=== PATIENT | female | born 1970 | race Hispanic/Latino ===

== ENCOUNTER 2018-08-28 21:52 | Emergency (ER) | payer MEDICARE ==
[~2018-08-28] VITALS: Ht 157.5 cm; Wt 118.8 kg
--- OUTSIDE RECORDS SUMMARY | 2018-08-28 21:54 | XMS REPORT | Summary of Care ---
Author Author [facility] Organization [facility] Address Unknown Phone Unavailable Encounter HQ Dean_kari(FIN) [id number] Date(s): 06/16/17 - 06/16/17 [facility] [place] [address] [phone] Discharge Disposition: Home or Self Care Attending Physician: Marychuy Fountain MD Vital Signs No data available for this section Problem List Condition Effective Dates Status Health Status Informant Spinal stenosis of 04/11/14 Active lumbar region(Confirmed)1 1Data migrated from [employer] on 06/24/15. Originally documented as Lumbar spinal stenosis. Allergies, Adverse Reactions, Alerts Substance Reaction Severity Status [email or web address] Active 1Data migrated from [employer] on 06/22/16. Originally documented as Copaxone. Medications No data available for this section Results No data available for this section Immunizations No data available for this section Procedures No data available for this section Social History No data available for this section Assessment and Plan No data available for this section
--- OUTSIDE RECORDS SUMMARY | 2018-08-28 21:54 | XMS REPORT | Summary of Care ---
Author Author [facility] Address Unknown Phone Unavailable Encounter HQ Encntr_kari(FIN) [id number] Date(s): 07/16/17 - 08/14/17 [facility] [address] [place], [place] [address] Encounter Diagnosis Multiple sclerosis (Final) - 10/22/17 Discharge Disposition: Home or Self Care Attending Physician: Anuel Gregg MD Vital Signs No data available for this section Problem List Condition Effective Dates Status Health Status Informant Spinal stenosis of 04/11/14 Active lumbar region(Confirmed)1 1Data migrated from [employer] on 06/24/15. Originally documented as Lumbar spinal stenosis. Allergies, Adverse Reactions, Alerts Substance Reaction Severity Status [email or web address] Active 1Data migrated from [employer] on 06/22/16. Originally documented as Copaxone. Medications No data available for this section Results No data available for this section Immunizations No data available for this section Procedures No data available for this section Social History Social History Type Response Smoking Status Unknown if ever smoked; Previous treatment: None; Exposure to Tobacco Smoke None; Cigarette Smoking Last 365 Days Unable to obtain; Reg Smoking Cessation Counseling No entered on: 07/06/17 Assessment and Plan No data available for this section
--- OUTSIDE RECORDS SUMMARY | 2018-08-28 21:54 | XMS REPORT | Summary of Care ---
Author Author [facility] Address Unknown Phone Unavailable Encounter HQ Madiha(SCOTT) [id number] Date(s): 06/02/17 - 07/01/17 [facility] [address] [place], [place] [address] Discharge Disposition: Home or Self Care Attending Physician: Anuel Gregg MD Vital Signs No data available for this section Problem List Condition Effective Dates Status Health Status Informant Spinal stenosis of 04/11/14 Active lumbar region(Confirmed)1 1Data migrated from [employer] on 06/24/15. Originally documented as Lumbar spinal stenosis. Allergies, Adverse Reactions, Alerts Substance Reaction Severity Status [email or web address] Active 1Data migrated from [employer] on 06/22/16. Originally documented as Copaxone. Medications [...]
--- OUTSIDE RECORDS SUMMARY | 2018-08-28 21:54 | XMS REPORT | Summary of Care ---
Author Author [facility] Address Unknown Phone Unavailable Encounter HQ Dean_kari(SCOTT) [id number] Date(s): 07/14/18 - 08/14/18 [facility] [address] [place], [place] [address] Discharge Disposition: Home or Self Care Attending Physician: Elvia Martinez MD Referring Physician: Elvia Martinez MD Vital Signs Most recent to 1 oldest [Reference Range]: Blood Pressure 104/53 mmHg [90-140/60-90 mmHg] (07/14/18 10:04 AM) Peripheral Pulse 76 bpm Rate [60-100 bpm] (07/14/18 10:04 AM) Problem List Condition Effective Dates Status Health Status Informant Multiple sclerosis, Active primary progressive(Confirme d) Spinal stenosis of 04/11/14 Active lumbar region(Confirmed)1 1Data migrated from [employer] on 06/24/15. Originally documented as Lumbar spinal stenosis. Allergies, Adverse Reactions, Alerts Substance Reaction Severity Status [email or web address] Active 1Data migrated from [employer] on 06/22/16. Originally documented as Copaxone. Medications [...]
--- OUTSIDE RECORDS SUMMARY | 2018-08-28 21:54 | XMS REPORT | Summary of Care ---
Author Author [facility] Address Unknown Phone Unavailable Encounter HQ Madiha(SCOTT) [id number] Date(s): 04/20/17 - 05/19/17 [facility] [address] [place], [place] [address] Discharge Disposition: Home or Self Care Attending Physician: Anuel Gregg MD Referring Physician: Anuel Gregg MD Vital Signs Most recent to 1 2 oldest [Reference Range]: Height 157.48 cm (04/20/17 9:18 AM) Blood Pressure 107/58 mmHg 135/69 mmHg [90-140/60-90 mmHg] (04/22/17 11:18 AM) (04/20/17 9:18 AM) Peripheral Pulse 78 bpm 73 bpm Rate [60-100 bpm] (04/22/17 11:18 AM) (04/20/17 9:18 AM) Weight 152.273 kg (04/20/17 9:18 AM) Body Mass Index 61.4 m2 (04/20/17 9:18 AM) Problem List Condition Effective Dates Status Health Status Informant Spinal stenosis of 04/11/14 Active lumbar region(Confirmed)1 1Data migrated from [employer] on 06/24/15. Originally documented as Lumbar spinal stenosis. Allergies, Adverse Reactions, Alerts Substance Reaction Severity Status [email or web address] Active 1Data migrated from [employer] on 06/22/16. Originally documented as Copaxone. Medications No data available for this section Results No data available for this section Immunizations No data available for this section Procedures No data available for this section Social History No data available for this section Assessment and Plan No data available for this section
--- OUTSIDE RECORDS SUMMARY | 2018-08-28 21:54 | XMS REPORT | Clinical Summary ---
Author Author [facility] Address Unknown Phone Unavailable Care Team Providers Care Artificial Teeth Inspector Name Role Phone PCP Unavailable Allergies Not on File Medications Not on file Active Problems Not on file Encounters Care Team Description Date Type Specialty Michael Saunders MD ANDRÉS (obstructive sleep apnea); Multiple sclerosis (HCC); Morbid obesity (HCC); Body mass index 50.0-59.9, adult (HCC) 02/05/2018 Hospital Encounter Angi Luna RRT, RCP 02/01/2018 Outside Orders Angi Luna RRT, RCP ANDRÉS (obstructive sleep apnea) (Primary Dx); Multiple sclerosis (HCC); Morbid obesity (HCC); Body mass index 50.0-59.9, adult (HCC) 02/01/2018 Outside Orders Angi Luna RRT, RCP ANDRÉS (obstructive sleep apnea) (Primary Dx); Multiple sclerosis (HCC); Morbid obesity (HCC); Body mass index 50.0-59.9, adult ([facility]) 02/01/2018 Outside Orders Pao King, SENIOR QUALITY ASSURANCE ANALYST, RPSGT 11/12/2017 Outside Orders Michael Saunders MD Obstructive sleep apnea (adult) (pediatric); Morbid obesity with body mass index of 50.0-59.9 in adult (HCC); Morbid obesity with BMI of 50.0-59.9, adult (HCC) 10/16/2017 Hospital Encounter Angi Luna RRT, RCP Obstructive sleep apnea (adult) (pediatric) (Primary Dx); Morbid obesity with body mass index of 50.0-59.9 in adult (HCC); Morbid obesity with BMI of 50.0-59.9, adult ([facility]) 10/01/2017 Orders Only after 2017 Social History Date Tobacco Use Types Packs/Day Years Used Never Assessed Sex Assigned at Date Recorded Not on file Industry Job Start Date Occupation Not on file Not on file Not on file Travel End Travel History Travel Start No recent travel history available. Last Filed Vital Signs Not on file Plan of Treatment Health Maintenance Due Date Last Done Comments INFLUENZA VACCINE 03/07/2018 Procedures Comments Procedure Name Priority Date/Time Associated Diagnosis POLYSOMNOGRAPHY REPORT - 03/01/2018 SCAN 1:41 PM CDT POLYSOMNOGRAPHY REPORT - 02/11/2018 SCAN 6:10 AM CDT POLYSOMNOGRAPHY REPORT - 11/19/2017 SCAN 2:45 PM CDT POLYSOMNOGRAPHY REPORT - 10/20/2017 SCAN 11:11 AM CDT after 2017 Results * POLYSOMNOGRAPHY REPORT - SCAN (03/01/2018 1:41 PM CDT) Narrative Performed At * POLYSOMNOGRAPHY REPORT - SCAN (02/11/2018 6:10 AM CDT) Narrative Performed At * POLYSOMNOGRAPHY REPORT - SCAN (11/19/2017 2:45 PM CDT) Narrative Performed At * POLYSOMNOGRAPHY REPORT - SCAN (10/20/2017 11:11 AM CDT) Narrative Performed At after 2017 Insurance Payer Benefit Subscriber ID Type Phone Address Plan / Group MEDICARE MEDICARE A xxxxxxxxxx Medicare B MEDICAID MEDICAID xxxxxxxxx Medicaid OF [place]
--- OUTSIDE RECORDS SUMMARY | 2018-08-28 21:54 | XMS REPORT | Summary of Care ---
Author Author [facility] Address Unknown Phone Unavailable Encounter HQ Irmantr_kari(SCOTT) [id number] Date(s): 03/01/17 - 03/30/17 [address] [place], [place] [address] Discharge Disposition: Home or Self Care Attending Physician: Anuel Gregg MD Vital Signs No data available for this section Problem List Condition Effective Dates Status Health Status Informant Spinal stenosis of 04/11/14 Active lumbar region(Confirmed)1 1Data migrated from [employer] on 06/24/15. Originally documented as Lumbar spinal stenosis. Allergies, Adverse Reactions, Alerts Substance Reaction Severity Status [email or web address] Active 1Data migrated from [employer] on 06/22/16. Originally documented as Copaxone. Medications No data available for this section Results No data available for this section Immunizations No data available for this section Procedures No data available for this section Social History No data available for this section Assessment and Plan No data available for this section
--- OUTSIDE RECORDS SUMMARY | 2018-08-28 21:54 | XMS REPORT | Summary of Care ---
Author Author [facility] Address Unknown Phone Unavailable Encounter HQ Dean_kari(SCOTT) [id number] Date(s): 05/03/17 - 06/01/17 [facility] [address] [place], [place] [address] Discharge Disposition: Home or Self Care Attending Physician: Anuel Gregg MD Vital Signs Most recent to 1 oldest [Reference Range]: Blood Pressure 101/50 mmHg [90-140/60-90 mmHg] (06/01/17 2:27 PM) Problem List Condition Effective Dates Status Health Status Informant Spinal stenosis of 04/11/14 Active lumbar region(Confirmed)1 1Data migrated from [employer] on 06/24/15. Originally documented as Lumbar spinal stenosis. Allergies, Adverse Reactions, Alerts Substance Reaction Severity Status [email or web address] Active 1Data migrated from [employer] on 06/22/16. Originally documented as Copaxone. Medications No data available for this section Results No data available for this section Immunizations No data available for this section Procedures No data available for this section Social History No data available for this section Assessment and Plan No data available for this section
--- OUTSIDE RECORDS SUMMARY | 2018-08-28 21:54 | XMS REPORT | Summary of Care ---
Author Author [facility] Address Unknown Phone Unavailable Encounter GREG Cleary(FIN) [id number] Date(s): 12/28/17 - 01/26/18 [facility] [address] [place], [place] [address] [phone] Encounter Diagnosis Multiple sclerosis (Final) - 02/18/18 Other abnormalities of gait and mobility (Final) - Weakness (Final) - Cramp and spasm (Final) - Discharge Disposition: Home or Self Care Attending Physician: Elvia Martinez MD Vital Signs Most recent to 1 2 oldest [Reference Range]: Blood Pressure 103/61 mmHg 121/57 mmHg [90-140/60-90 mmHg] (01/20/18 12:44 PM) (01/13/18 1:34 PM) Peripheral Pulse 89 bpm 81 bpm Rate [60-100 bpm] (01/20/18 12:44 PM) (01/13/18 1:34 PM) Problem List Condition Effective Dates Status Health Status Informant Multiple sclerosis, Active primary progressive(Confirme d) Spinal stenosis of 04/11/14 Active lumbar region(Confirmed)1 1Data migrated from [employer] on 06/24/15. Originally documented as Lumbar spinal stenosis. Allergies, Adverse Reactions, Alerts Substance Reaction Severity Status [email or web address] Active 1Data migrated from [employer] on 06/22/16. Originally documented as Copaxone. Medications [...]
--- OUTSIDE RECORDS SUMMARY | 2018-08-28 21:54 | XMS REPORT | Summary of Care ---
Author Author [facility] Address Unknown Phone Unavailable Encounter HQ Dean_kari(SCOTT) [id number] Date(s): 11/26/17 - 12/25/17 [address] [place], [place] [address] Discharge Disposition: Home or Self Care Attending Physician: Elvia Martinez MD Referring Physician: Elvia Martinez MD Vital Signs Most recent to 1 oldest [Reference Range]: Blood Pressure 96/56 mmHg [90-140/60-90 mmHg] (11/26/17 11:01 AM) Peripheral Pulse 85 bpm Rate [60-100 bpm] (11/26/17 11:01 AM) Problem List Condition Effective Dates Status Health Status Informant Spinal stenosis of 04/11/14 Active lumbar region(Confirmed)1 1Data migrated from [employer] on 06/24/15. Originally documented as Lumbar spinal stenosis. Allergies, Adverse Reactions, Alerts Substance Reaction Severity Status [email or web address] Active 1Data migrated from [employer] on 06/22/16. Originally documented as Copaxone. Medications [...]
--- OUTSIDE RECORDS SUMMARY | 2018-08-28 21:54 | XMS REPORT | Summary of Care ---
Author Author [facility] Address Unknown Phone Unavailable Encounter HQ Dean_kari(FIN) [id number] Date(s): 07/07/17 - 07/07/17 [address] [place], [place] [address] Attending Physician: Anuel Gregg MD Vital Signs No data available for this section Problem List Condition Effective Dates Status Health Status Informant Spinal stenosis of 04/11/14 Active lumbar region(Confirmed)1 1Data migrated from [employer] on 06/24/15. Originally documented as Lumbar spinal stenosis. Allergies, Adverse Reactions, Alerts Substance Reaction Severity Status [email or web address] Active 1Data migrated from [employer] on 06/22/16. Originally documented as Copaxone. Medications [...]
--- OUTSIDE RECORDS SUMMARY | 2018-08-28 21:54 | XMS REPORT | Summary of Care ---
Author Author [facility] Address Unknown Phone Unavailable Encounter GREG Cleary(SCOTT) [id number] Date(s): 11/19/17 - 12/18/17 [address] [place], [place] [address] [phone] Discharge Disposition: Home or Self Care Attending Physician: Physician, Non Associated MD Referring Physician: PCP, None MD Vital Signs Most recent to 1 2 oldest [Reference Range]: Height 157.48 cm (11/19/17 1:08 PM) Blood Pressure 100/59 mmHg 94/55 mmHg [90-140/60-90 mmHg] (11/24/17 10:32 AM) (11/19/17 1:08 PM) Peripheral Pulse 81 bpm 81 bpm Rate [60-100 bpm] (11/24/17 10:32 AM) (11/19/17 1:08 PM) Weight 139.148 kg (11/19/17 1:08 PM) Body Mass Index 56.11 m2 (11/19/17 1:08 PM) Problem List Condition Effective Dates Status Health Status Informant Spinal stenosis of 04/11/14 Active lumbar region(Confirmed)1 1Data migrated from [employer] on 06/24/15. Originally documented as Lumbar spinal stenosis. Allergies, Adverse Reactions, Alerts Substance Reaction Severity Status [email or web address] Active 1Data migrated from [employer] on 06/22/16. Originally documented as Copaxone. Medications [...]
--- OUTSIDE RECORDS SUMMARY | 2018-08-28 21:54 | XMS REPORT | Continuity of Care Document ---
Author Author [facility] Address Unknown Phone Unavailable Problems Problem Status Onset Date Classification Date Reported Comments Source FITTING Active 07/07/2018 [facility] MUTIPLE SCLEROSIS Active 03/01/2018 [facility] Multiple sclerosis 02/18/2018 08/15/2018 [facility] EVAL Active 11/17/2017 [facility] Gastro-esophageal reflux disease without esophagitis 06/22/2017 09/22/2017 [facility] [place] MULTIPLE SCLEROSIS Active 04/23/2017 [facility] V76.12 - SCREEN MAMMOGRA Active 08/20/2014 [facility] Spinal stenosis of lumbar region<sup>1</sup> Active 04/11/2014 Problem 08/16/2018 Data migrated from Toothpick on 06/24/15. Originally documented as Lumbar spinal stenosis. [facility] [place] M/S Active 06/07/2000 [facility] Dyskinesia of esophagus 09/22/2017 [facility] [place] Epigastric pain 09/22/2017 [facility] [place] Hypothyroidism, unspecified 09/22/2017 [facility] [place] Mixed hyperlipidemia 09/22/2017 [facility] [place] Other abnormalities of gait and mobility 08/15/2018 [facility] Weakness 08/15/2018 [facility] Cramp and spasm 08/15/2018 [facility] Multiple sclerosis, primary progressive Active Problem 08/16/2018 [facility] PARAPLEGIA, UNSPECIFIED Active [facility] MULTIPLE SCLEROSIS Active [facility] Medications Medication Details Route Status Patient Instructions Ordering Provider Order Date Source Allergies, Adverse Reactions, Alerts Substance Category Reaction Severity Reaction type Status Date Reported Comments Source glatiramer<sup>1</sup> Assertion Drug allergy Active 01/10/2013 Data migrated from Toothpick on 06/22/16. Originally documented as Copaxone. [facility] Immunizations Immunization Date Given Site Status Last Updated Comments Source Results Order Name Results Value Reference Range Date Interpretation Comments Source Upper GI w Barium swallow DX Upper GI w Barium swallow DX Exam: Barium swallow esophagram and upper gastrointestinal swallow exam Reason for Exam: - dyspepsia Comparison Exam: None Discussion: Note that this is a limited exam secondary to lack of patient mobility. Business Services Assistant view of the cervical spine and soft tissues of the neck are unremarkable. Patient ingested air crystals and barium without incident. Upon deglutition, there was no evidence seen for aspiration or penetration. The valleculae and piriform sinuses are unremarkable. The esophagus is unremarkable in appearance, without evidence for mucosal abnormalities, abnormal filling defects, or external mass effect. No hiatal hernia was identified. However, a moderate amount of tertiary contraction waves are seen of the esophagus. During the examination, there was no evidence seen for gastroesophageal reflux. The stomach and duodenum are unremarkable. Fluoro time 2 minutes, 34 seconds. Total exam YWK=4002 mGy-cm. Impression: 1. Moderate tertiary contraction waves involving the esophagus. No evidence seen for gastroesophageal reflux. 06/16/2017 - - Read by: Maicol Beckman MD Dictated Date/time: 06/16/17 13:45 Electronically Signed by: Maicol Beckman MD 06/16/17 13:49 FINAL REPORT DANTE Martines Foot series DX Foot series DX Exam: Left ankle and left foot x-rays, 3 views each Reason for Exam: sprain Comparison Exam: Left ankle x-ray 05/21/2011 Discussion: No acute bony abnormalities. Joint spaces are preserved. No suspicious osteoblastic or osteolytic lesions. Impression: 1. No acute bony abnormalities identified. 09/21/2016 - - Read by: Maicol Beckman MD Dictated Date/time: 09/21/16 15:42 Electronically Signed by: Maicol Beckman MD 09/21/16 15:44 FINAL REPORT DANTE Martines Ankle 3 views DX Ankle 3 views DX Exam: Left ankle and left foot x-rays, 3 views each Reason for Exam: sprain Comparison Exam: Left ankle x-ray 05/21/2011 Discussion: No acute bony abnormalities. Joint spaces are preserved. No suspicious osteoblastic or osteolytic lesions. Impression: 1. No acute bony abnormalities identified. 09/21/2016 - - Read by: Maicol Beckman MD Dictated Date/time: 09/21/16 15:42 Electronically Signed by: Maicol Beckman MD 09/21/16 15:44 FINAL REPORT DANTE Martines Vital Signs Vital Sign Value Date Comments Source Systolic (mm Hg) 104 07/14/2018 [facility] Diastolic (mm Hg) 53 07/14/2018 [facility] Heart Rate 76 07/14/2018 [facility] Heart Rate 89 01/20/2018 [facility] Systolic (mm Hg) 103 01/20/2018 [facility] Diastolic (mm Hg) 61 01/20/2018 [facility] Systolic (mm Hg) 121 01/13/2018 [facility] Diastolic (mm Hg) 57 01/13/2018 [facility] Heart Rate 81 01/13/2018 [facility] Systolic (mm Hg) 96 11/26/2017 [facility] Diastolic (mm Hg) 56 11/26/2017 [facility] Heart Rate 85 11/26/2017 [facility] Systolic (mm Hg) 100 11/24/2017 [facility] Diastolic (mm Hg) 59 11/24/2017 [facility] Heart Rate 81 11/24/2017 [facility] Height 157.48 cm 11/19/2017 [facility] Weight 139.148 11/19/2017 [facility] BMI Calculated 56.11 11/19/2017 [facility] Heart Rate 81 11/19/2017 [facility] Systolic (mm Hg) 94 11/19/2017 [facility] Diastolic (mm Hg) 55 11/19/2017 [facility] Systolic (mm Hg) 101 06/01/2017 [facility] Diastolic (mm Hg) 50 06/01/2017 [facility] Heart Rate 78 04/22/2017 [facility] Systolic (mm Hg) 107 04/22/2017 [facility] Diastolic (mm Hg) 58 04/22/2017 [facility] Height 157.48 cm 04/20/2017 [facility] Systolic (mm Hg) 135 04/20/2017 [facility] Diastolic (mm Hg) 69 04/20/2017 [facility] Heart Rate 73 04/20/2017 [facility] Weight 152.273 04/20/2017 [facility] BMI Calculated 61.4 04/20/2017 [facility] Systolic (mm Hg) 102 01/29/2017 [facility] Diastolic (mm Hg) 61 01/29/2017 [facility] Heart Rate 75 01/29/2017 [facility] Encounters Location Location Details Encounter Type Encounter Number Reason For Visit Attending Provider ADM Date DC Date Status Source [facility] [place] [facility] [id number] Marychuy Александр 09/11/2014 09/12/2014 [facility] [place] [facility] [place] [facility] [id number] Marychuy Александр 09/21/2016 09/22/2016 [facility] [place] [facility] [id number] Anuel Gregg 01/29/2017 02/28/2017 [facility] [id number] Anuel Gregg 03/01/2017 03/31/2017 [facility] [id number] Anuel Gregg 03/31/2017 04/30/2017 [facility] [id number] Anuel Gregg 04/20/2017 05/20/2017 [facility] [id number] Anuel Gregg 05/03/2017 06/02/2017 [facility] [id number] Anuel Gregg 06/02/2017 07/02/2017 [facility] [place] Out[facility] Di[facility] [id number] Marychuy Fountain 06/16/2017 06/17/2017 [facility] [place] [facility] [id number] Anuel Gregg 07/07/2017 07/07/2017 [facility] [id number] Anuel Gregg 07/16/2017 08/15/2017 [facility] [id number] Non Physician 11/19/2017 12/19/2017 [facility] [id number] Elvia Juan 11/26/2017 12/26/2017 [facility] [id number] Elvia Juan 12/28/2017 01/27/2018 [facility] [id number] Elvia Juan 07/14/2018 08/15/2018 [facility] Procedures Procedure Code Date Perfomer Comments Source
--- OUTSIDE RECORDS SUMMARY | 2018-08-28 21:54 | XMS REPORT | Summary of Care ---
Author Author [facility] Address Unknown Phone Unavailable Encounter HQ Dean_kari(SCOTT) [id number] Date(s): 01/29/17 - 02/27/17 [facility] [address] [place], [place] [address] Discharge Disposition: Home or Self Care Attending Physician: Anuel Gregg MD Vital Signs Most recent to 1 oldest [Reference Range]: Blood Pressure 102/61 mmHg [90-140/60-90 mmHg] (01/29/17 8:13 AM) Peripheral Pulse 75 bpm Rate [60-100 bpm] (01/29/17 8:13 AM) Problem List Condition Effective Dates Status Health Status Informant Spinal stenosis of 04/11/14 Active lumbar region(Confirmed)1 1Data migrated from [employer] on 06/24/15. Originally documented as Lumbar spinal stenosis. Allergies, Adverse Reactions, Alerts Substance Reaction Severity Status [email or web address] Active 1Data migrated from [employer] on 06/22/16. Originally documented as Copaxone. Medications No data available for this section Results No data available for this section Immunizations No data available for this section Procedures No data available for this section Social History No data available for this section Assessment and Plan No data available for this section
--- OUTSIDE RECORDS SUMMARY | 2018-08-28 21:54 | XMS REPORT | Summary of Care ---
Author Author [facility] Address Unknown Phone Unavailable Encounter HQ Dean_kari(SCOTT) [phone] Date(s): 03/31/17 - 04/29/17 [facility] [address] [place], [place] [address] [phone] Discharge Disposition: Home or Self Care Attending Physician: Anuel Gregg MD Vital Signs No data available for this section Problem List Condition Effective Dates Status Health Status Informant Spinal stenosis of 04/11/14 Active lumbar region(Confirmed)1 1Data migrated from [email or web address] on 06/24/15. Originally documented as Lumbar spinal stenosis. Allergies, Adverse Reactions, Alerts Substance Reaction Severity Status [email or web address] Active 1Data migrated from [email or web address] on 06/22/16. Originally documented as Copaxone. Medications No data available for this section Results No data available for this section Immunizations No data available for this section Procedures No data available for this section Social History No data available for this section Assessment and Plan No data available for this section
--- OUTSIDE RECORDS SUMMARY | 2018-08-28 21:55 | XMS REPORT | Summary of Care ---
Author Author CHAPARRITA MARTINEZ M.D. Organization Unknown Address Unknown Phone Unavailable Care Team Providers Care Cooperative Education Coordinator Name Role Phone CHAPARRITA MARTINEZ M.D. Unavailable Unavailable Unavailable Unavailable Functional Status Name Dates Details Functional status health issues are not documented Status: Name Dates Details Cognitive status health issues are not documented Status: Problems Name Dates Details Chronic pain of both knees (719.46, M25.561) Status: Active Follow up (V67.9, Z09) Status: Active Primary osteoarthritis of knees, bilateral (715.16, M17.0) Status: Active Multiple sclerosis (340, G35) Status: Active Medications Name Dates Details Diclofenac Sodium 1 % Transdermal Gel APPLY 4 GM OF GEL TO AFFECTED AREA FOUR TIMES DAILY. NO MORE THAN 16GM DAILY TO ONE JOINT Quantity: 500 CHAPARRITA MARTINEZ M.D. * Start : 13-Jan-2018 Active Allergies and Adverse Reactions Name Dates Details No Known Drug Allergies (Allergy) Status: Active Procedures Procedure Dates Details Procedures not documented Immunization Name Dates Details Immunizations not documented Social History Name Dates Details Unknown if ever smoked Vital Signs Date Test Result Details No Known Vitals to report Results Date Description Value Details Results not documented Plan of Care Name Dates Details Planned Observations Planned Goals not documented Interventions Provided Medication Changes* Diclofenac Sodium 1 % Transdermal Gel - Renew Instructions Name Dates Details Instructions not documented Encounters Appointment; CHAPARRITA MARTINEZ M.D. Encounter Diagnosis: Problem not documented On: 23-Apr-2016 13:45 Appointment; CHAPARRITA MARTINEZ M.D. Encounter Diagnosis: Problem not documented On: 28-May-2016 13:15 Appointment; CHAPARRITA MARTINEZ M.D. Encounter Diagnosis: Problem not documented On: 06-Jul-2016 15:45 Appointment; CHAPARRITA MARTINEZ M.D. Encounter Diagnosis: Problem not documented On: 30-Nov-2016 9:45
--- OUTSIDE RECORDS SUMMARY | 2018-08-28 21:55 | XMS REPORT | Summary of Care ---
Author Author [facility] Address Unknown Phone Unavailable Encounter HQ Madiha(FIN) [phone] Date(s): 11/26/17 - 12/25/17 [id number] [place], [place] [address] [phone] Encounter Diagnosis Multiple sclerosis (Final) - 01/09/18 Cramp and spasm (Final) - Other abnormalities of gait and mobility (Final) - Discharge Disposition: Home or Self [...] 04/11/14 Active lumbar region(Confirmed)1 1Data migrated from WhoSay on 06/24/15. Originally documented as Lumbar spinal stenosis. Allergies, Adverse Reactions, Alerts Substance Reaction Severity Status [email or web address] Active 1Data migrated from WhoSay on 06/22/16. Originally documented as Copaxone. Medications [...]
--- OUTSIDE RECORDS SUMMARY | 2018-08-28 21:55 | XMS REPORT | Summary of Care ---
Author Author [facility] [place] Organization [facility] [place] Address Unknown Phone Unavailable Encounter HQ Irmantr_kari(FIN) [phone] Date(s): 09/21/16 - 09/21/[address] [facility] [place] [address] [phone] Discharge Disposition: Home or Self Care Attending Physician: Marychuy Fountain MD Vital Signs No data available for this section Problem List Condition Effective Dates Status Health Status Informant Spinal stenosis of 04/11/14 Active lumbar region(Confirmed)1 1Data migrated from [employer]Vo[employer] on 06/24/15. Originally documented as Lumbar spinal stenosis. Allergies, Adverse Reactions, Alerts Substance Reaction Severity Status [email or web address] Active 1Data migrated from [employer]Vo[employer] on 06/22/16. Originally documented as Copaxone. Medications No data available for this section Results No data available for this section Immunizations No data available for this section Procedures No data available for this section Social History No data available for this section Assessment and Plan No data available for this section
--- OUTSIDE RECORDS SUMMARY | 2018-08-28 21:55 | XMS REPORT | Summary of Care ---
Author Organization Unknown Address Unknown Phone Unavailable Encounter HQ Encntr_alias([facility]) [phone] Date(s): 09/11/14 - 09/11/14 [facility] Outpatient Imaging - [address] [address] [facility] [phone] Discharge Disposition: Home Physician Attending: Marychuy Fountain MD Vital Signs No data available for this section Problem List No data available for this section Allergies, Adverse Reactions, Alerts No data available for this section Medications No data available for this section Results No data available for this section Immunizations No data available for this section Procedures No data available for this section Social History No data available for this section Assessment and Plan No data available for this section
[2018-08-28 22:52] VITALS: BP 104/66
== END 2018-08-28 23:39 | disposition home or self-care (01) ==
LOC: ER 21:52
DX: R53.1 Weakness (principal); G35 Multiple sclerosis
CPT/HCPCS: 99282